=== PATIENT | female | born 1990 | race Two or more races ===

== ENCOUNTER 2020-08-03 13:14 | Outpatient (REF) | payer OTHER, SELFPAY | END 2020-08-03 13:15 | disposition home or self-care (01) | LOC: HO.LAB 13:14 | PROVIDERS: Visit Provider Internal Medicine | DX: Z12.31 Encounter for screening mammogram for malignant neoplasm of breast (principal) | CPT/HCPCS: C9803; U0003 ==

== ENCOUNTER 2023-12-18 08:45 | Outpatient (RCR) | payer OTHER, SELFPAY ==
[2023-12-18 12:04] VITALS: BMI 37.8
[2023-12-18 12:05] VITALS: BP 102/70; PULSE 80; TEMP 37.2
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
== END 2023-12-18 23:59 | disposition home or self-care (01) ==
LOC: HO.PHPA 08:45
PROVIDERS: Visit Provider Psychiatry & Neurology Psychiatry
DX: F33.2 Major depressive disorder, recurrent severe without psychotic features (principal); F43.10 Post-traumatic stress disorder, unspecified; F41.1 Generalized anxiety disorder
CPT/HCPCS: 90791; 90853

== ENCOUNTER 2024-02-14 11:59 | Outpatient (REF) | payer OTHER, SELFPAY ==
[2024-02-14 12:21] LABS: MANUAL DIFF FLAG NO
[2024-02-14 12:39] LABS: Basophils Percent Auto 0.5 % (0-2); Eosinophils Absolute Auto 0.2 X10*3/uL (0.0-0.4); Eosinophils Percent Auto 2.6 % (0-4); Hemoglobin 14.7 g/dl (12.0-16.0); Imm Gran Abs Auto 0.02 X10*3/uL (0.00-0.03); Imm Gran Pct Auto 0.3 % (0.0-0.4); Lymphocytes Percent Auto 26.5 % (20-40); Mean Corpuscular HGB Conc 32.7 g/dl (31.0-35.0); Mean Corpuscular Hemoglobin 28.3 pg (27.0-33.0); Mean Corpuscular Volume 86.7 fL (80.0-98.0); Monocytes Absolute Auto 0.4 X10*3/uL (0.1-1.2); Monocytes Percent Auto 5.8 % (2-11); Neutrophils Absolute Auto 4.9 x10*3/uL (2.0-8.3); Neutrophils Percent Auto 64.3 % (45-73); Platelet Count 334 X10*3/uL (160-400); Red Blood Count 5.19 X10*6/uL (4.20-5.50); Red Cell Distribution Width 12.3 % (11.0-16.0); White Blood Count 7.6 X10*3/uL (4.8-10.8)
[2024-02-14 12:49] LABS: Estimated Average Glucose 103 mg/dL; Hemoglobin A1c % 5.2 % (<6.0)
[2024-02-14 13:18] LABS: Alanine Aminotransferase 22 U/L (0-31); Albumin Level 4.5 g/dL (3.5-5.0); Alkaline Phosphatase 47 U/L (39-117); Anion Gap 13 (12-20); Aspartate Amino Transferase 14 U/L (5-31); Bilirubin Total 0.5 mg/dL (0.0-1.0); Blood Urea Nitrogen 11 mg/dL (9-16); Calcium 9.7 mg/dL (8.4-10.2); Carbon Dioxide 25 mmol/L (22-29); Chloride 107 mmol/L (96-108); Cholesterol 176 mg/dL (<200); Estimated Glomerular Filt Rate > 60; Glucose Fasting 92 mg/dL (60-99); HDL Cholesterol 46 mg/dL (>40); Iron 106 mcg/dL (30-160); LDL Cholesterol Calculated 102 mg/dL (<100); Percent Iron Saturation 27 % (15-50); Potassium 4.6 mmol/L (3.3-5.1); Sodium 140 mmol/L (135-145); Total Iron Binding Capacity 392 mcg/dL (228-428); Total Protein 8.1 g/dL (6.5-8.0); Triglycerides 144 mg/dL (<150); Unsaturated Iron Binding 286 ug/dL
[2024-02-14 13:42] LABS: Folate 10.9 ng/mL (> or = 4.0); Free T4 (Free Thyroxine) 1.22 ng/dL (0.71-1.85); Thyroid Stimulating Hormone 0.47 uIU/mL (0.32-4.0); Vitamin B12 340 pg/mL (200-900); Vitamin D 25-OH Total 15.1 ng/mL (>30)
== END 2024-02-14 12:00 | disposition home or self-care (01) ==
LOC: HO.LAB 11:59
PROVIDERS: PCP Internal Medicine; Visit Provider Psychiatry & Neurology Psychiatry
DX: F39 Unspecified mood [affective] disorder (principal); F43.10 Post-traumatic stress disorder, unspecified
CPT/HCPCS: 36415; 80053; 80061; 82306; 82607; 82746; 83036; 83540; 83735; 84439; 84443; 85025

== ENCOUNTER 2024-02-15 13:00 | Outpatient (RCR) | payer OTHER, SELFPAY ==
[2024-01-30 13:18] VITALS: BMI 38.8
[2024-01-30 13:19] VITALS: BP 110/82; PULSE 83; TEMP 36.9
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
--- NOTE | 2024-02-01 16:46 | HO.PHP ---
Client's case opened and reviewed in teams.
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
--- NOTE | 2024-02-13 14:13 | HO.PHP ---
Pt did not come in for programming today. [employer] called pt at 9:15 am to check in. Pt was home, stated she did not feel well, thinks her symptoms are a reaction to the new medication she started. Pt was scheduled to discharge today, pt will not discharge, pt informed to report this to the [facility] doctor, stated will call her today. Pt stated she is safe, no safety concerns reported, stated she will rest today and come in tomorrow.
--- NOTE | 2024-02-14 08:20 | HO.PHP ---
[facility] appts are scheduled for: OP therapist February 20 at 10 am with Jose Cline at [address] [place] [address]. Med Provider appt is on February 25 at 2pm with Mirna Evans.
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
--- NOTE | 2024-02-15 23:26 | P.PNPSP_ITS ---
Subjective Subjective Date of Service: 02/15/24 Reason For Visit: depression Interim History: Patient seen for follow-up, anticipating discharge at the end of program today.? Reports no acute issues or concerns. Medication compliant, medications well- tolerated. Denies any adverse effects.? Mood is stable.? Denies any hopelessness or SI. Denies thoughts of harming self or others at this time. Denies any aggressive ideation or HI. Denies any paranoia or AH or VH. Sleep, appetite, energy stable. Medication Compliance: Yes Side effects from medications: No Attending Groups: Yes Review of Systems Acute medical concerns: No Mental Status Exam Mental Status Exam Narrative: Alert, oriented, in no acute distress. Calm, cooperative. Mood stable, affect appropriate. Speech normal. Thought process linear, coherent, more goal- directed. Thought content related to stressors, future-oriented, denies any helplessness, hopelessness or SI.? No aggressive ideation or HI. No paranoia or delusional content elicited. No evidence of psychosis. Insight and judgment fair-good. Diagnostics Vital Signs (24Hr): BMI result Body Mass Index 38.8 Assessment & Plan Assessment & Plan (1) Other specified persistent mood disorders: Status: Acute Code(s): F34.89 - Other specified persistent mood disorders Assessment and Plan: r/o Bipolar spectrum r/o other causes of mood dysregulation (characterological, developmental) (2) Post traumatic stress disorder (PTSD): Status: Acute Code(s): F43.10 - Post-traumatic stress disorder, unspecified Plan Discharge from [facility] Continue regular medications - including oxcarbazapine now at 300 mg BID Refills sent to pharmacy Will defer further medication management to outpatient provider *Safety plan reviewed Patient educated on: diagnosis, medication risk/benefits and substance abuse Informed Consent: understands Reason for contiued partial hosp. stay Substantial Risk for: stable for discharge Certification I certify that partial hospital treatment is medically necessary due to the symptoms and problems resulting from the patient's mental illness and the failure to treat the patient at the partial hospital level of care would likely result in the patient requiring inpatient psychiatric care which could not be prevented at a less intensive level of care. Total time managing care of this patient today _30___ minutes. Discharge Plan Discharge Attending provider: Demetrice Leung Medications: New oxcarbazepine 300 mg tablet 300 mg PO BID Qty: 20 0RF ergocalciferol (vitamin D2) [Vitamin D2] 1,250 mcg (50,000 unit) capsule 1,250 mcg PO QWEEK Qty: 12 0RF Continued diclofenac sodium 75 mg Tablet,Delayed Release (Dr/Ec) 75 mg PO BID tizanidine 4 mg Capsule 4 mg PO Q6H PRN (Reason: Muscle Spasm) Stand Alone Forms: Patient Portal Discharge page Patient Education: Mood Disorders (ED) Print Language: Georgian
== END 2024-02-15 23:59 | disposition home or self-care (01) ==
LOC: HO.PHPA 13:00
PROVIDERS: Visit Provider Psychiatry & Neurology Psychiatry
DX: F34.89 Other specified persistent mood disorders (principal); F43.10 Post-traumatic stress disorder, unspecified; Z79.899 Other long term (current) drug therapy
CPT/HCPCS: 90791; 90853